=== PATIENT | male | born 1955 | race Caucasian/White ===

== ENCOUNTER 2020-01-25 11:30 | Observation (INO) ==
[2020-01-25] MEDS ORDERED: 0.9 % Sodium Chloride 1,000 ML IVC ONE (11:36)
[2020-01-25 12:07] LABS: Basophils % 0.4 %; Eosinophils % 0.4 %; Hemoglobin 11.6 g/dL (12.9-16.9); Immature Granulocytes % 0.9 % (0-4); Lymphocytes # 0.8 K/mcL (0.6-4.6); Lymphocytes % 6.6 %; Mean Corpuscular HGB Conc 35.2 g/dL (31.6-35.5); Mean Corpuscular Hemoglobin 29.2 pg (28.0-33.3); Mean Corpuscular Volume 83.1 fL (83.0-100.0); Mean Platelet Volume 9.8 fL (9.4-12.4); Monocytes # 0.4 K/mcL (0.0-1.3); Monocytes % 3.2 %; Platelet Count 319 K/mcL (140-400); Red Blood Count 3.97 M/mcL (4.19-5.50); Red Cell Distribution Width 14.7 % (11.5-14.5); Segmented Neutrophils % 88.5 %; White Blood Count 11.3 K/mcL (4.3-11.1)
[2020-01-25 12:13] LABS: Basophils # 0.1 K/mcL (0.0-0.2); Eosinophils # 0.1 K/mcL (0.0-0.6)
[2020-01-25 12:20] LABS: Troponin I < 0.03 ng/mL (< 0.04)
[2020-01-25 12:30] LABS: Alanine Aminotransferase 18 Units/L (7-52); Albumin 3.7 g/dL (3.5-5.7); Albumin/Globulin Ratio 0.9 (1.1-2.2); Alkaline Phosphatase 110 Units/L (34-104); Aspartate Amino Transferase 34 Units/L (13-39); BUN/Creatinine Ratio 13 (6-26); Bilirubin,Total 0.3 mg/dL (0.3-1.0); Blood Urea Nitrogen 10 mg/dL (8-23); Calcium 8.8 mg/dL (8.6-10.3); Carbon Dioxide 27 mEq/L (23-29); Chloride 81 mEq/L (98-107); Creatine Kinase 295 Units/L (30-223); Globulin 4.1 g/dL (2.4-3.5); Glucose 129 mg/dL (70-105); Osmolality,Calculated 249 (280-300); Potassium 3.6 mEq/L (3.5-5.1); Sodium 119 mEq/L (136-145); Total Protein 7.8 g/dL (6.4-8.9); eGFR For African Americans > 60 (> 60); eGFR For Non-African Americans > 60 (> 60)
[2020-01-25] MEDS: 0.9 % Sodium Chloride 1,000 ML IVC SCH ×2 (13:04→20:35)
[2020-01-25] MEDS ORDERED: Mag Hydrox/Al Hydrox/Simeth 30 ML UDC PO PRN (14:11)
[2020-01-25] MEDS ORDERED: Acetaminophen 325 MG TABLET PO PRN (14:11)
[2020-01-25] MEDS ORDERED: MOM Conc 10 ML UD.LIQ PO PRN (14:11)
[2020-01-25] MEDS ORDERED: Naloxone 0.4 MG/ML INJ IVP PRN (14:11)
[2020-01-25] MEDS ORDERED: Ondansetron 4 MG/2 ML VIAL IVP PRN (14:11)
[2020-01-25] MEDS ORDERED: tiZANidine 4 MG TABLET PO PRN (16:30)
[2020-01-25] MEDS ORDERED: ACETAMINOPHEN PO PRN (16:30)
[2020-01-25] MEDS: atenoloL 25 MG TABLET PO SCH (20:31)
[2020-01-25] MEDS: CarBAMazepine XR (12 hr) 100 MG TAB PO SCH (20:32)
[2020-01-25] MEDS: PHENobarbitaL 32.4 MG TABLET PO SCH (20:34)
[2020-01-26] MEDS: 0.9 % Sodium Chloride 1,000 ML IVC SCH (04:35)
[2020-01-26 06:08] LABS: Basophils % 0.4 %; Eosinophils # 0.1 K/mcL (0.0-0.6); Eosinophils % 1.1 %; Hematocrit 29.9 % (37.5-50.1); Hemoglobin 10.2 g/dL (12.9-16.9); Immature Granulocytes % 1.2 % (0-4); Lymphocytes # 1.1 K/mcL (0.6-4.6); Lymphocytes % 12.4 %; Mean Corpuscular HGB Conc 34.1 g/dL (31.6-35.5); Mean Corpuscular Hemoglobin 29.1 pg (28.0-33.3); Mean Corpuscular Volume 85.2 fL (83.0-100.0); Mean Platelet Volume 9.6 fL (9.4-12.4); Monocytes # 0.4 K/mcL (0.0-1.3); Monocytes % 4.5 %; Neutrophils # 7.4 K/mcL (1.6-8.9); Platelet Count 281 K/mcL (140-400); Red Blood Count 3.51 M/mcL (4.19-5.50); Red Cell Distribution Width 14.9 % (11.5-14.5); Segmented Neutrophils % 80.4 %; White Blood Count 9.1 K/mcL (4.3-11.1)
[2020-01-26 06:53] LABS: BUN/Creatinine Ratio 14 (6-26); Blood Urea Nitrogen 11 mg/dL (8-23); Calcium 7.9 mg/dL (8.6-10.3); Carbon Dioxide 26 mEq/L (23-29); Chloride 94 mEq/L (98-107); Glucose 93 mg/dL (70-105); Osmolality,Calculated 265 (280-300); Potassium 3.8 mEq/L (3.5-5.1); Sodium 128 mEq/L (136-145); eGFR For African Americans > 60 (> 60); eGFR For Non-African Americans > 60 (> 60)
[2020-01-26] MEDS: calcium polycarbophiL 625 MG TABLET PO SCH (07:56)
[2020-01-26] MEDS: Aspirin Enteric Coated 81 MG Tablet PO SCH (07:56)
[2020-01-26] MEDS: atenoloL 25 MG TABLET PO SCH ×2 (07:56→22:16)
[2020-01-26] MEDS: OLANZapine 5 MG TAB.RAPDIS PO SCH (07:56)
[2020-01-26] MEDS: Tolterodine LA (24 HR) 2 MG CAP.ER.24H PO SCH (07:56)
[2020-01-26] MEDS: CarBAMazepine XR (12 hr) 100 MG TAB PO SCH (07:56)
[2020-01-26] MEDS: PHENobarbitaL 32.4 MG TABLET PO SCH ×2 (07:56→22:16)
[2020-01-26] MEDS: polyethylene glycoL 3350 17 GM POWD.PACK PO SCH (07:57)
[2020-01-27] MEDS: CarBAMazepine XR (12 hr) 100 MG TAB PO SCH ×2 (00:10→10:40)
[2020-01-27 05:55] LABS: BUN/Creatinine Ratio 16 (6-26); Blood Urea Nitrogen 12 mg/dL (8-23); Calcium 8.4 mg/dL (8.6-10.3); Carbon Dioxide 23 mEq/L (23-29); Chloride 98 mEq/L (98-107); Glucose 86 mg/dL (70-105); Osmolality,Calculated 275 (280-300); Potassium 4.9 mEq/L (3.5-5.1); Sodium 133 mEq/L (136-145); eGFR For African Americans > 60 (> 60); eGFR For Non-African Americans > 60 (> 60)
[2020-01-27 06:22] VITALS: BP 119/73
[2020-01-27] MEDS: polyethylene glycoL 3350 17 GM POWD.PACK PO SCH (08:28)
[2020-01-27] MEDS: Aspirin Enteric Coated 81 MG Tablet PO SCH (10:40)
[2020-01-27] MEDS: calcium polycarbophiL 625 MG TABLET PO SCH (10:40)
[2020-01-27] MEDS: atenoloL 25 MG TABLET PO SCH (10:41)
[2020-01-27] MEDS: PHENobarbitaL 32.4 MG TABLET PO SCH (10:41)
[2020-01-27] MEDS: Tolterodine LA (24 HR) 2 MG CAP.ER.24H PO SCH (10:41)
[2020-01-27] MEDS: OLANZapine 5 MG TAB.RAPDIS PO SCH (10:41)
== END 2020-01-27 12:45 | disposition home health service (06) ==
LOC: INPPIK 11:30 → EMEROOPIK 11:30 → INPPIK 14:41
PROVIDERS: ADMIT Family Medicine; ATTEND Family Medicine

== ENCOUNTER 2020-07-01 15:32 | Inpatient (IN) ==
[2020-07-01 16:27] LABS: Basophils # 0.1 K/mcL (0.0-0.2); Basophils % 0.4 %; Eosinophils # 0.1 K/mcL (0.0-0.6); Eosinophils % 0.3 %; Hematocrit 28.7 % (37.5-50.1); Hemoglobin 9.7 g/dL (12.9-16.9); Immature Granulocytes % 0.8 % (0-4); Lymphocytes # 1.3 K/mcL (0.6-4.6); Lymphocytes % 5.9 %; Mean Corpuscular HGB Conc 33.8 g/dL (31.6-35.5); Mean Corpuscular Hemoglobin 29.3 pg (28.0-33.3); Mean Corpuscular Volume 86.7 fL (83.0-100.0); Mean Platelet Volume 10.5 fL (9.4-12.4); Monocytes # 0.3 K/mcL (0.0-1.3); Monocytes % 1.5 %; Platelet Count 285 K/mcL (140-400); Red Blood Count 3.31 M/mcL (4.19-5.50); Red Cell Distribution Width 15.8 % (11.5-14.5); Segmented Neutrophils % 91.1 %; White Blood Count 21.6 K/mcL (4.3-11.1)
[2020-07-01 16:28] LABS: Neutrophils # 19.7 K/mcL (1.6-8.9)
[2020-07-01 16:42] LABS: BUN/Creatinine Ratio 14 (6-26); Blood Urea Nitrogen 16 mg/dL (8-23); Calcium 8.2 mg/dL (8.6-10.3); Carbon Dioxide 25 mEq/L (23-29); Chloride 92 mEq/L (98-107); Glucose 107 mg/dL (70-105); Osmolality,Calculated 268 (280-300); Potassium 2.9 mEq/L (3.5-5.1); Sodium 128 mEq/L (136-145); eGFR For African Americans > 60 (> 60); eGFR For Non-African Americans > 60 (> 60)
[2020-07-01] MEDS ORDERED: Potassium Chloride Elixir 20 MEQ/15 ML UDC PO ONE (16:58)
[2020-07-01] MEDS ORDERED: Acetaminophen 325 MG TABLET PO PRN (17:42)
[2020-07-01] MEDS ORDERED: Ondansetron ODT 4 MG TAB.RAPDIS SL PRN (17:42)
[2020-07-01] MEDS ORDERED: Naloxone 0.4 MG/ML INJ IVP PRN (17:42)
[2020-07-01] MEDS ORDERED: tiZANidine 4 MG TABLET PO PRN (17:53)
[2020-07-01] MEDS: 0.9 % Sodium Chloride 1,000 ML IVC SCH (18:59)
[2020-07-01] MEDS: risperiDONE 1 MG TABLET PO SCH (19:49)
[2020-07-01] MEDS: PHENobarbitaL 32.4 MG TABLET PO SCH (19:49)
[2020-07-01] MEDS: Mirabegron [Myrbetriq] 25 MG PO SCH (19:49)
[2020-07-01] MEDS: traZODone 50 MG TABLET PO SCH (19:49)
[2020-07-01] MEDS: Nicotine 21 MG PATCH.TD24 TD SCH (21:52)
[2020-07-02] MEDS: PHENobarbitaL 32.4 MG TABLET PO SCH ×2 (07:29→20:54)
[2020-07-02] MEDS: calcium polycarbophiL 625 MG TABLET PO SCH (07:29)
[2020-07-02] MEDS: risperiDONE 1 MG TABLET PO SCH ×2 (07:29→20:54)
[2020-07-02] MEDS: 0.9 % Sodium Chloride 1,000 ML IVC SCH (07:30)
[2020-07-02] MEDS: Nicotine 21 MG PATCH.TD24 TD SCH (07:30)
[2020-07-02 08:53] LABS: Hematocrit 31.3 % (37.5-50.1); Hemoglobin 10.5 g/dL (12.9-16.9); Mean Corpuscular HGB Conc 33.5 g/dL (31.6-35.5); Mean Corpuscular Hemoglobin 28.8 pg (28.0-33.3); Mean Corpuscular Volume 85.8 fL (83.0-100.0); Mean Platelet Volume 10.4 fL (9.4-12.4); Platelet Count 320 K/mcL (140-400); Red Blood Count 3.65 M/mcL (4.19-5.50); Red Cell Distribution Width 15.8 % (11.5-14.5); White Blood Count 24.9 K/mcL (4.3-11.1)
[2020-07-02 09:20] LABS: BUN/Creatinine Ratio 13 (6-26); Blood Urea Nitrogen 15 mg/dL (8-23); Calcium 8.5 mg/dL (8.6-10.3); Carbon Dioxide 26 mEq/L (23-29); Chloride 96 mEq/L (98-107); Glucose 97 mg/dL (70-105); Magnesium 1.7 mg/dL (1.6-2.6); Osmolality,Calculated 275 (280-300); Potassium 3.1 mEq/L (3.5-5.1); Sodium 132 mEq/L (136-145); eGFR For African Americans > 60 (> 60); eGFR For Non-African Americans > 60 (> 60)
[2020-07-02 11:25] LABS: Bilirubin,Urine Negative (Negative); Blood,Urine Negative (Negative); Clarity,Urine Clear (Clear); Glucose,Urine (UA) Normal (Normal); Ketones,Urine Negative (Negative); Leukocyte Esterase,Urine Negative (Negative); Nitrite,Urine Negative (Negative); Protein,Urine Negative (Neg-Trace); Specific Gravity,Urine 1.015 (1.010-1.025); Urobilinogen,Urine Normal (Normal)
[2020-07-02 11:26] LABS: Color,Urine Light Yellow (Yellow)
[2020-07-02] MEDS: Sulfamethoxazole/Trimeth DS 1 EACH TABLET PO SCH ×2 (12:31→20:54)
[2020-07-02] MEDS: traZODone 50 MG TABLET PO SCH (20:54)
[2020-07-02] MEDS: Mirabegron [Myrbetriq] 25 MG PO SCH (20:56)
[2020-07-03 06:23] VITALS: BP 115/75
[2020-07-03] MEDS: PHENobarbitaL 32.4 MG TABLET PO SCH (08:34)
[2020-07-03] MEDS: calcium polycarbophiL 625 MG TABLET PO SCH (08:34)
[2020-07-03] MEDS: risperiDONE 1 MG TABLET PO SCH (08:34)
[2020-07-03] MEDS: Sulfamethoxazole/Trimeth DS 1 EACH TABLET PO SCH (08:34)
[2020-07-03] MEDS: Nicotine 21 MG PATCH.TD24 TD SCH (08:35)
[2020-07-03 08:50] LABS: Basophils # 0.1 K/mcL (0.0-0.2); Basophils % 0.6 %; Eosinophils # 0.1 K/mcL (0.0-0.6); Eosinophils % 1.5 %; Hematocrit 33.5 % (37.5-50.1); Hemoglobin 10.8 g/dL (12.9-16.9); Immature Granulocytes % 1.3 % (0-4); Lymphocytes # 1.9 K/mcL (0.6-4.6); Lymphocytes % 22.7 %; Mean Corpuscular HGB Conc 32.2 g/dL (31.6-35.5); Mean Corpuscular Hemoglobin 28.4 pg (28.0-33.3); Mean Corpuscular Volume 88.2 fL (83.0-100.0); Mean Platelet Volume 10.4 fL (9.4-12.4); Monocytes # 0.2 K/mcL (0.0-1.3); Monocytes % 2.2 %; Neutrophils # 6.1 K/mcL (1.6-8.9); Platelet Count 292 K/mcL (140-400); Red Cell Distribution Width 15.9 % (11.5-14.5); Segmented Neutrophils % 71.7 %; White Blood Count 8.5 K/mcL (4.3-11.1)
[2020-07-03 09:13] LABS: BUN/Creatinine Ratio 14 (6-26); Blood Urea Nitrogen 18 mg/dL (8-23); Calcium 8.5 mg/dL (8.6-10.3); Carbon Dioxide 23 mEq/L (23-29); Chloride 103 mEq/L (98-107); Glucose 121 mg/dL (70-105); Osmolality,Calculated 285 (280-300); Potassium 3.8 mEq/L (3.5-5.1); Sodium 136 mEq/L (136-145); eGFR For African Americans > 60 (> 60); eGFR For Non-African Americans 58 (> 60)
== END 2020-07-03 13:18 | disposition home health service (06) | DRG 101 ==
LOC: INPPIK 15:32 → EMEROOPIK 15:32 → INPPIK 18:30
PROVIDERS: ADMIT Family Medicine; ATTEND Family Medicine

== ENCOUNTER 2020-08-07 19:40 | Inpatient (IN) ==
[2020-08-07 20:21] LABS: Basophils # 0.1 K/mcL (0.0-0.2); Basophils % 0.9 %; Eosinophils # 0.1 K/mcL (0.0-0.6); Eosinophils % 0.9 %; Hematocrit 27.2 % (37.5-50.1); Hemoglobin 8.8 g/dL (12.9-16.9); Immature Granulocytes % 0.5 % (0-4); Lymphocytes # 2.1 K/mcL (0.6-4.6); Lymphocytes % 22.9 %; Mean Corpuscular HGB Conc 32.4 g/dL (31.6-35.5); Mean Corpuscular Hemoglobin 28.9 pg (28.0-33.3); Mean Corpuscular Volume 89.2 fL (83.0-100.0); Mean Platelet Volume 10.5 fL (9.4-12.4); Monocytes # 0.8 K/mcL (0.0-1.3); Monocytes % 8.2 %; Neutrophils # 6.1 K/mcL (1.6-8.9); Platelet Count 300 K/mcL (140-400); Red Blood Count 3.05 M/mcL (4.19-5.50); Red Cell Distribution Width 16.6 % (11.5-14.5); Segmented Neutrophils % 66.6 %; White Blood Count 9.1 K/mcL (4.3-11.1)
[2020-08-07 20:45] LABS: Albumin 3.2 g/dL (3.5-5.7); Albumin/Globulin Ratio 1.1 (1.1-2.2); Bilirubin,Total 0.2 mg/dL (0.3-1.0); Calcium 8.3 mg/dL (8.6-10.3); Globulin 2.9 g/dL (2.4-3.5); Phosphorous 1.4 mg/dL (2.7-4.5); Potassium 3.6 mEq/L (3.5-5.1); Total Protein 6.1 g/dL (6.4-8.9)
[2020-08-07 21:11] LABS: Activated Partial Thrombo Time 27.3 Seconds (26.0-36.0); INR 1.2; Prothrombin Time 13.8 Seconds (9.4-12.1)
[2020-08-07 21:44] LABS: Bilirubin,Urine Small (Negative); Blood,Urine Negative (Negative); Clarity,Urine Clear (Clear); Color,Urine Yellow (Yellow); Glucose,Urine (UA) Normal (Normal); Ketones,Urine Negative (Negative); Leukocyte Esterase,Urine Trace (Negative); Nitrite,Urine Negative (Negative); Protein,Urine Negative (Neg-Trace); Specific Gravity,Urine 1.025 (1.010-1.025); Urobilinogen,Urine Normal (Normal)
[2020-08-07 21:52] LABS: Hyaline Casts,Urine Few per lpf (None Seen)
[2020-08-07 21:53] LABS: RBC,Urine 0-3 per hpf (0-3); Renal Epithelial Cells,Urine Few per hpf (None-Few); Squamous Epithelial Cell,Urine Few per hpf (None-Few)
[2020-08-07 21:54] LABS: Bacteria,Urine Few per hpf (None-Few); Mucus,Urine Moderate per lpf (None-Few)
[2020-08-07] MEDS ORDERED: cefTRIAXone 1,000 MG in 0.9 % Sodium Chloride Mini Bag 100 ML IVPB ONE (23:19)
[2020-08-07] MEDS ORDERED: 0.9 % Sodium Chloride 1,000 ML IV ONE (23:19)
[2020-08-08] MEDS ORDERED: Naloxone 0.4 MG/ML INJ IVP PRN (00:15)
[2020-08-08] MEDS ORDERED: 0.9 % Sodium Chloride 1,000 ML IVC SCH ×2 (00:15→11:44)
[2020-08-08] MEDS ORDERED: tiZANidine 4 MG TABLET PO PRN (00:28)
[2020-08-08] MEDS: calcium polycarbophiL 625 MG TABLET PO SCH (08:03)
[2020-08-08] MEDS: PHENobarbitaL 32.4 MG TABLET PO SCH ×2 (08:03→20:56)
[2020-08-08] MEDS: risperiDONE 1 MG TABLET PO SCH ×2 (08:04→20:57)
[2020-08-08 08:44] LABS: Basophils # 0.1 K/mcL (0.0-0.2); Eosinophils # 0.1 K/mcL (0.0-0.6); Hemoglobin 8.7 g/dL (12.9-16.9); Immature Granulocytes % 0.5 % (0-4); Lymphocytes # 1.7 K/mcL (0.6-4.6); Lymphocytes % 28.2 %; Mean Corpuscular HGB Conc 32.2 g/dL (31.6-35.5); Mean Corpuscular Hemoglobin 29.1 pg (28.0-33.3); Mean Corpuscular Volume 90.3 fL (83.0-100.0); Mean Platelet Volume 10.7 fL (9.4-12.4); Monocytes # 0.3 K/mcL (0.0-1.3); Monocytes % 5.3 %; Neutrophils # 3.7 K/mcL (1.6-8.9); Platelet Count 284 K/mcL (140-400); Red Blood Count 2.99 M/mcL (4.19-5.50); Red Cell Distribution Width 17.1 % (11.5-14.5); White Blood Count 5.9 K/mcL (4.3-11.1)
[2020-08-08] MEDS ORDERED: cefTRIAXone 1,000 MG in Water for inj. (sterile) 10 ML IVP SCH (09:00)
[2020-08-08 09:30] LABS: Calcium 7.6 mg/dL (8.6-10.3); Magnesium 1.9 mg/dL (1.6-2.6); Phosphorous 2.4 mg/dL (2.7-4.5); Potassium 3.6 mEq/L (3.5-5.1)
[2020-08-08] MEDS: traZODone 50 MG TABLET PO SCH (20:56)
[2020-08-08] MEDS: Mirabegron [Myrbetriq] 25 MG PO SCH (20:58)
[2020-08-09 07:04] LABS: Basophils # 0.1 K/mcL (0.0-0.2); Basophils % 0.5 %; Eosinophils # 0.1 K/mcL (0.0-0.6); Eosinophils % 0.9 %; Hematocrit 26.7 % (37.5-50.1); Hemoglobin 8.5 g/dL (12.9-16.9); Immature Granulocytes % 0.6 % (0-4); Lymphocytes # 0.8 K/mcL (0.6-4.6); Lymphocytes % 6.5 %; Mean Corpuscular HGB Conc 31.8 g/dL (31.6-35.5); Mean Corpuscular Hemoglobin 28.6 pg (28.0-33.3); Mean Corpuscular Volume 89.9 fL (83.0-100.0); Mean Platelet Volume 10.1 fL (9.4-12.4); Monocytes # 0.5 K/mcL (0.0-1.3); Monocytes % 4.2 %; Neutrophils # 10.9 K/mcL (1.6-8.9); Platelet Count 277 K/mcL (140-400); Red Blood Count 2.97 M/mcL (4.19-5.50); Red Cell Distribution Width 17.1 % (11.5-14.5); Segmented Neutrophils % 87.3 %; White Blood Count 12.5 K/mcL (4.3-11.1)
[2020-08-09 07:22] LABS: BUN/Creatinine Ratio 12 (6-26); Blood Urea Nitrogen 17 mg/dL (8-23); Carbon Dioxide 22 mEq/L (23-29); Chloride 104 mEq/L (98-107); Glucose 102 mg/dL (70-105); Osmolality,Calculated 278 (280-300); Potassium 4.1 mEq/L (3.5-5.1); Sodium 133 mEq/L (136-145); eGFR For African Americans > 60 (> 60); eGFR For Non-African Americans 52 (> 60)
[2020-08-09] MEDS: Sulfamethoxazole/Trimeth DS 1 EACH TABLET PO SCH ×2 (08:30→20:04)
[2020-08-09] MEDS: risperiDONE 1 MG TABLET PO SCH ×2 (08:30→20:04)
[2020-08-09] MEDS: PHENobarbitaL 32.4 MG TABLET PO SCH ×2 (08:30→20:04)
[2020-08-09] MEDS: calcium polycarbophiL 625 MG TABLET PO SCH (08:30)
[2020-08-09 09:03] LABS: % Iron Saturation 11 % (20-55); Iron 24 mcg/dL (65-175); Transferrin 152 mg/dL (203-362)
[2020-08-09] MEDS: traZODone 50 MG TABLET PO SCH (20:04)
[2020-08-09] MEDS: Mirabegron [Myrbetriq] 25 MG PO SCH (20:05)
[2020-08-10 07:06] LABS: Basophils # 0.1 K/mcL (0.0-0.2); Basophils % 0.3 %; Eosinophils # 0.1 K/mcL (0.0-0.6); Eosinophils % 0.7 %; Hematocrit 28.2 % (37.5-50.1); Hemoglobin 9.1 g/dL (12.9-16.9); Immature Granulocytes % 0.7 % (0-4); Lymphocytes # 1.4 K/mcL (0.6-4.6); Lymphocytes % 9.3 %; Mean Corpuscular HGB Conc 32.3 g/dL (31.6-35.5); Mean Corpuscular Hemoglobin 28.7 pg (28.0-33.3); Monocytes # 0.4 K/mcL (0.0-1.3); Monocytes % 2.3 %; Neutrophils # 13.3 K/mcL (1.6-8.9); Platelet Count 295 K/mcL (140-400); Red Blood Count 3.17 M/mcL (4.19-5.50); Red Cell Distribution Width 17.2 % (11.5-14.5); Segmented Neutrophils % 86.7 %; White Blood Count 15.3 K/mcL (4.3-11.1)
[2020-08-10 07:24] LABS: BUN/Creatinine Ratio 17 (6-26); Blood Urea Nitrogen 17 mg/dL (8-23); Calcium 8.1 mg/dL (8.6-10.3); Carbon Dioxide 22 mEq/L (23-29); Chloride 100 mEq/L (98-107); Glucose 100 mg/dL (70-105); Osmolality,Calculated 272 (280-300); Potassium 4.3 mEq/L (3.5-5.1); Sodium 130 mEq/L (136-145); eGFR For African Americans > 60 (> 60); eGFR For Non-African Americans > 60 (> 60)
[2020-08-10] MEDS: PHENobarbitaL 32.4 MG TABLET PO SCH ×2 (09:16→20:28)
[2020-08-10] MEDS: calcium polycarbophiL 625 MG TABLET PO SCH (09:16)
[2020-08-10] MEDS: risperiDONE 1 MG TABLET PO SCH ×2 (09:16→20:28)
[2020-08-10] MEDS: Sulfamethoxazole/Trimeth DS 1 EACH TABLET PO SCH ×2 (09:16→20:29)
[2020-08-10] MEDS: traZODone 50 MG TABLET PO SCH (20:27)
[2020-08-10] MEDS: Mirabegron [Myrbetriq] 25 MG PO SCH (20:28)
[2020-08-11 06:51] LABS: Basophils # 0.1 K/mcL (0.0-0.2); Basophils % 0.4 %; Eosinophils # 0.2 K/mcL (0.0-0.6); Eosinophils % 1.1 %; Hematocrit 27.3 % (37.5-50.1); Hemoglobin 8.9 g/dL (12.9-16.9); Immature Granulocytes % 0.7 % (0-4); Lymphocytes # 1.9 K/mcL (0.6-4.6); Lymphocytes % 13.2 %; Mean Corpuscular HGB Conc 32.6 g/dL (31.6-35.5); Mean Corpuscular Hemoglobin 29.1 pg (28.0-33.3); Mean Corpuscular Volume 89.2 fL (83.0-100.0); Mean Platelet Volume 10.1 fL (9.4-12.4); Monocytes # 0.3 K/mcL (0.0-1.3); Monocytes % 2.1 %; Platelet Count 265 K/mcL (140-400); Red Blood Count 3.06 M/mcL (4.19-5.50); Segmented Neutrophils % 82.5 %; White Blood Count 14.1 K/mcL (4.3-11.1)
[2020-08-11 06:57] LABS: Neutrophils # 11.6 K/mcL (1.6-8.9)
[2020-08-11 07:09] LABS: BUN/Creatinine Ratio 26 (6-26); Blood Urea Nitrogen 27 mg/dL (8-23); Calcium 8.3 mg/dL (8.6-10.3); Carbon Dioxide 23 mEq/L (23-29); Chloride 101 mEq/L (98-107); Glucose 98 mg/dL (70-105); Osmolality,Calculated 279 (280-300); Potassium 4.2 mEq/L (3.5-5.1); Sodium 132 mEq/L (136-145); eGFR For African Americans > 60 (> 60); eGFR For Non-African Americans > 60 (> 60)
[2020-08-11 07:32] VITALS: BP 97/60
[2020-08-11] MEDS: calcium polycarbophiL 625 MG TABLET PO SCH (09:21)
[2020-08-11] MEDS: Sulfamethoxazole/Trimeth DS 1 EACH TABLET PO SCH (09:21)
[2020-08-11] MEDS: risperiDONE 1 MG TABLET PO SCH (09:21)
[2020-08-11] MEDS: PHENobarbitaL 32.4 MG TABLET PO SCH (09:21)
== END 2020-08-11 14:50 | disposition home health service (06) | DRG 683 ==
LOC: EMEROOPIK 19:40 → INPPIK 19:40
PROVIDERS: ADMIT Student in an Organized Health Care Education/Training Program; ATTEND Family Medicine